=== PATIENT | female | born 1940 | race Caucasian/White ===

== ENCOUNTER 2023-02-19 14:18 | Outpatient (CLI) | payer MEDICARE | END 2023-02-19 14:19 | disposition home or self-care (01) | LOC: CSHRAD 14:18 | PROVIDERS: ATTEND Neurological Surgery | DX: Z01.818 Encounter for other preprocedural examination (principal); Z95.0 Presence of cardiac pacemaker; M54.16 Radiculopathy, lumbar region | CPT/HCPCS: 71046 ==